=== PATIENT | male | born 1950 | race Two or more races ===

== ENCOUNTER 2021-01-13 12:00 | Inpatient (IN) | payer OTHER ==
[~2021-01-13] VITALS: Ht 177.8 cm; Wt 140.6 kg
[2021-01-13] MEDS ORDERED: METFORMIN HCL1000 M2 PO (15:44)
[2021-01-13] MEDS ORDERED: NORVASC5 MG PO (15:45)
[2021-01-13] MEDS ORDERED: TOPROL XL50 M1 PO (15:45)
[2021-01-13] MEDS ORDERED: HYDROCHLOROTH12.5 MG PO (15:45)
[2021-01-13] MEDS ORDERED: AVAPRO150 MG PO (15:45)
[2021-01-13] MEDS ORDERED: FOLIC ACID20 MG PO (15:46)
[2021-01-13] MEDS ORDERED: LEVO-T50 MCG PO (15:46)
[2021-01-13] MEDS ORDERED: PRILOSEC OTC20 MG PO (15:46)
[2021-01-13] MEDS ORDERED: SINGULAIR 10MG10 MG PO (15:46)
[2021-01-13] MEDS ORDERED: VITAMIN C500 M6 PO (15:46)
[2021-01-13] MEDS ORDERED: B-12500 MCG PO (15:47)
[2021-01-18] MEDS ORDERED: ALPHAGAN P5 M2 (13:09)
[2021-01-18] MEDS ORDERED: FLONASE16 GM (13:09)
[2021-01-18] MEDS ORDERED: DORZOLAMIDE-TIM10 ML (13:09)
[2021-01-18] MEDS ORDERED: DORZOLAMIDE HCL10 ML (13:09)
[2021-01-18] MEDS ORDERED: OMEPRAZOLE20 MG (13:09)
[2021-01-18] MEDS ORDERED: DICLOFENAC POTA50 MG (13:09)
[2021-01-18] MEDS ORDERED: DICLOFENAC SODI75 MG (13:10)
[2021-01-18] MEDS ORDERED: OPTIMAL D31250 MCG (13:10)
[2021-01-18] MEDS ORDERED: PROAIR HFA8.5 GM (13:10)
[2021-01-18] MEDS ORDERED: TACROLIMUS30 G1 (13:10)
[2021-01-18] MEDS ORDERED: LATANOPROST2.5 ML (13:10)
[2021-01-18] MEDS ORDERED: INTEGRA PLUS C1 EAC1 (13:10)
[2021-01-18] MEDS ORDERED: BETAMETHASONE V15 GM (13:11)
[2021-01-18] MEDS ORDERED: KETOCONAZOLE15 GM (13:11)
[2021-01-18] MEDS ORDERED: PERCOCET 5-3251 EACH PO (14:34)
[2021-01-18] MEDS ORDERED: AMOX-CLAV 875-1 EACH PO (14:34)
[2021-01-18] MEDS ORDERED: NEURONTIN800 MG PO (14:34)
[2021-01-18] MEDS ORDERED: MEDROLPACK PO (14:34)
[2021-01-18] MEDS ORDERED: COLACE100 MG PO (14:34)
[2021-01-18] MEDS ORDERED: DIAZEPAM5 MG PO (14:34)
== END 2021-01-20 12:50 | disposition home or self-care (01) | DRG 460 ==
LOC: O/R 01-18 07:40 → SURH 01-18 12:00 → PED 01-18 17:30
PROVIDERS: ADMIT Orthopaedic Surgery Orthopaedic Surgery of the Spine; ATTEND Orthopaedic Surgery Orthopaedic Surgery of the Spine
PROC: 07DR3ZZ Extraction of Iliac Bone Marrow, Percutaneous Approach (ICD-10-PCS; 2021-01-18)
PROC: 0SG30AJ Fusion of Lumbosacral Joint with Interbody Fusion Device, Posterior Approach, Anterior Column, Open Approach (ICD-10-PCS; principal; 2021-01-18 13:30)
DX: M48.07 Spinal stenosis, lumbosacral region (principal); M43.17 Spondylolisthesis, lumbosacral region